=== PATIENT | male | born 1980 | race Caucasian/White ===

== ENCOUNTER 2024-06-18 22:44 | Emergency (ER) | payer OTHER ==
[~2024-06-18] VITALS: Ht 175.3 cm; Wt 90.7 kg
[2024-06-19] MEDS ORDERED: AMLODIPINE BESYLATE 5 MG TABLET ONE (00:39)
[2024-06-19] MEDS: AMLODIPINE BESYLATE 5 MG TABLET PO ONE (00:41)
[2024-06-19 02:11] VITALS: BP 160/99; TEMP 98.6; O2SAT 100
== END 2024-06-19 02:11 | disposition home or self-care (01) ==
LOC: ER 22:51
DX: I10 Essential (primary) hypertension (principal); E78.5 Hyperlipidemia, unspecified